=== PATIENT | male | born 1955 | race Caucasian/White ===

== ENCOUNTER → 2022-08-15 | Outpatient (CLI) | payer BC, SELFPAY ==
[2022-08-15 19:27] LABS: Vitamin B12 648 pg/mL (211-911); Vitamin D,25 Hydroxy 79.6 ng/mL
[2022-08-15 19:32] LABS: CRP 8.81 mg/L (0.0-3.0); Ferritin 45 ng/mL (26-388); Free T3 2.3 pg/mL (2.18-3.98); Iron 46 ug/dL (65-175); Magnesium 2.2 mg/dL (1.6-2.6); Phosphorus 2.8 mg/dL (2.5-4.9); T4 Free Direct 1.65 ng/dL (0.76-1.46); Thyroid Stim Hormone (TSH) 3.42 uIU/mL (0.358-3.74)
== END | disposition home or self-care (01) ==
PROVIDERS: Visit Provider Nurse Practitioner Family
DX: K50.90 Crohn's disease, unspecified, without complications (principal); K92.1 Melena; R53.83 Other fatigue
CPT/HCPCS: 82306; 82607; 82728; 83540; 83735; 84100; 84439; 84443; 84481; 86140

== ENCOUNTER → 2023-04-04 | Outpatient (CLI) | payer BC, SELFPAY ==
[2023-04-04 10:16] LABS: Erythrocyte Sedimentation Rate 10 mm/hr (0-20)
[2023-04-04 10:17] LABS: Absolute Lymphocyte Count 1.01 X10^3/uL (0.83-4.51); Absolute Neutrophil Count 4.8 X10^3/uL (2.0-7.7); Basophil# 0.04 X10^3/uL; Basophil% 0.6 % (0-1); Eosinophil# 0.14 X10^3/uL; Eosinophils% 2.1 % (0-5); Hematocrit 43.7 % (40-54); Hemoglobin 14.6 g/dL (13.0-16.5); Lymphocyte # 1.01 X10^3/ul (0.83-4.51); Lymphocyte % 15.4 % (19-41); Mean Corp Hgb Conc 33.4 g/dL (32-36); Mean Corpuscular Hgb 30.7 pg (27.0-32.0); Mean Platelet Vol. 10.7 fl (6.2-12.0); Monocyte# 0.61 X10^3/uL; Monocyte% 9.3 % (0-10); NRBC Flagged by Analyzer 0 % (0-5); Neutrophil # 4.75 X10^3/uL (2.7-7.7); Neutrophil % 72.3 % (47-70); Platelet Count 201 K/mm3 (150-450); RBC Distribution Width CV 13.3 % (11.6-14.6); RBC Distribution Width SD 44.8 fl (35.1-43.9); Red Blood Count 4.75 M/mm3 (4.6-6.2); White Blood Count 6.6 K/mm3 (4.4-11.0)
[2023-04-04 10:38] LABS: ALB/GLOB Ratio 0.7 RATIO (0.9-2.4); AST(SGOT) 15 U/L (15-37); Alanine Aminotransfer ALT/SGPT 18 U/L (16-61); Albumin, Serum 3.3 g/dL (3.2-5.0); Alkaline Phosphatase 62 U/L (45-117); Amylase 90 U/L (25-115); Anion Gap 6 (5-15); BUN 16 mg/dL (7-18); BUN/Creat Ratio 14.2 RATIO (10-20); Calcium,Total 9.2 mg/dL (8.5-10.1); Chloride 107 mmol/L (98-107); Creatinine, Serum 1.13 mg/dL (0.70-1.30); EST Glomerular Filtration Rate 69 mL/min (>60); Est Glom Filt Rate - Afr Amer 83 mL/min (>60); Globulin 4.6 g/dL (2.2-4.2); Glucose 90 mg/dL (74-106); LDH 97 U/L (87-241); Lipase 39 U/L (13-75); Potassium 3.8 mmol/L (3.5-5.1); Protein, Total 7.9 g/dL (6.4-8.2); Sodium Level 139 mmol/L (136-145)
[2023-04-06 12:09] LABS: Anti-Centromere B Ab <0.2 AI (0.0-0.9); Anti-Chromatin <0.2 AI (0.0-0.9); Anti-Jo <0.2 AI (0.0-0.9); Anti-Scleroderma-70 AB <0.2 AI (0.0-0.9); Anti-dsDNA Ab 1 IU/mL (0-9); RNP Ab <0.2 AI (0.0-0.9); SJOGREN'S Anti-SS-A test 0.3 AI (0.0-0.9); SJOGREN'S Anti-SS-B test < 0.2 AI (0.0-0.9); Smith Ab <0.2 AI (0.0-0.9); Vitamin D 1,25-Dihydroxy 55.6 pg/mL (24.8-81.5)
[2023-04-07 18:07] LABS: Albumin 3.4 g/dL (2.9-4.4); Alpha-1-Globulins 0.3 g/dL (0.0-0.4); Alpha-2-Globulins 0.6 g/dL (0.4-1.0); Cytoplasmic Ab (C-ANCA) <1:20 titer (Neg:<1:20); Endomysial Antibody IgA Negative (Negative); Gamma Globulin 1.2 g/dL (0.4-1.8); HEPATITIS B SURFACE AG Negative (Negative); Hep C Antibodies Non Reactive (Non Reactive); Hepatitis A IgM Antibody Negative (Negative); Hepatitis B Core AB IgM Negative (Negative); Immunoglobulin A 759 mg/dL (61-437); Immunoglobulin E 22 IU/mL (6-495); Immunoglobulin G 1304 mg/dL (603-1613); Immunoglobulin M 121 mg/dL (20-172); PROEL- TOTAL PROTEIN 6.8 g/dL (6.0-8.5); Perinuclear Ab (P-ANCA) <1:20 titer (Neg:<1:20); QNTFERON TB Mitogen Value > 10.00 IU/mL (.); QNTFERON TB Nil Value 0.11 IU/mL (.); QNTFERON TB1+ Ag Value 0.11 IU/mL (.); QNTIFERON TB Positive Criteria Negative (Negative); t-Transglutaminase IgA <2 U/mL (0-3)
== END | disposition home or self-care (01) ==
PROVIDERS: Referring Provider Internal Medicine Gastroenterology; Visit Provider Internal Medicine Gastroenterology
DX: K50.00 Crohn's disease of small intestine without complications (principal)
CPT/HCPCS: 36415; 80053; 80074; 82150; 82652; 82784; 82785; 83516; 83615; 83690; 84165; 85025; 85652; 86140; 86225; 86235; 86255; 86256; 86334; 86480

== ENCOUNTER → 2023-04-08 | Outpatient (CLI) | payer BC, SELFPAY ==
[2023-04-10 20:07] LABS: Pancreatic Elastase, Fecal 152 (>200)
[2023-04-12 21:07] LABS: Calprotectin, Stool 1950 ug/g (0-120); Fats, Neutral Normal (.); Fats, Total Increased (.)
== END | disposition home or self-care (01) ==
LOC: LABSPEC 10:15
PROVIDERS: Referring Provider Internal Medicine Gastroenterology; Visit Provider Internal Medicine Gastroenterology
DX: K50.00 Crohn's disease of small intestine without complications (principal)
CPT/HCPCS: 82653; 82705; 83630; 83993; 87177; 87209; 87329; 87506

== ENCOUNTER → 2023-05-01 | Outpatient (CLI) | payer BC, SELFPAY ==
--- NOTE | 2023-05-01 11:36 | MRI_ITS ---
STUDY: MR ENTEROGRAPHY WITH CONTRAST REASON FOR EXAM: Male, 67 years old. K50.00 - Crohn''s disease of small intestine MIDDLE LOWER ABDOMEN PAIN RADIATION DOSAGE (If Supplied By Facility): CTDIvol = ( ) mGy, DLP = ( ) mGycm TECHNIQUE: Transaxial images were obtained from the dome of the diaphragm to the symphysis pubis with IV contrast according to MR enterography protocol. TECHNICAL QUALITY: Image Quality: Satisfactory Small Bowel Distension: Adequate. Individualized dose optimization techniques were used for this CT. COMPARISON: None. FINDINGS: Bowel: Bowel wall thickening: Absent. Skip lesions: None. Vascularity: Normal. Enhancement: Normal. Fistula: None. Abscess: None. Other Findings: The lung bases are unremarkable. The visualized portions of the heart are within normal limits Normal liver. Normal gallbladder and extrahepatic biliary system. Normal spleen. Normal pancreas. Normal bilateral adrenal glands. Normal right kidney. Normal left kidney. Normal visualized stomach. There is moderate colonic fecal residue involving the right, transverse and proximal descending colon. There is moderate wall thickening involving the sigmoid colon in the left lower quadrant as seen on image 14-19 with mild amount of adjacent fat stranding/induration (image 10 series 13). No focal fluid collection. Mildly enlarged pericolonic lymph nodes are seen on image 9 of series 13 measuring up to 8 mm. The appendix is not seen. Normal axial dimension of the abdominal aorta. Normal interior vena cava. Normal retroperitoneum. Normal urinary bladder. Normal abdominal wall. Degenerative changes of the lumbar spine. No bone marrow edema. MRI/Enterography Abd/Pel IMPRESSION: 1. No small bowel wall thickening, mucosal enhancement or enteric fistula. 2. Moderate length wall thickening of the sigmoid colon with underlying diverticulosis and adjacent fat stranding/induration/mild adenopathy. Findings can be associated with acute or chronic diverticulitis, muscular hyperplasia, inflammatory bowel disease or neoplasm. Recommend correlating with endoscopy and clinical history. Electronically Signed: Eliel Hairston (Brooks), at 7:55 EDT ,
--- NOTE | 2023-05-01 11:45 | RAD_ITS ---
STUDY: X-RAY - ORBITS REASON FOR EXAM: Male, 67 years old. HX METAL TO EYE,,, PRE MRI TECHNIQUE: 2 view(s) of the orbits were obtained. COMPARISON: None. FINDINGS: Normal bilateral orbits without a metallic orbital foreign body. Normal visualized facial bones. Normal paranasal sinuses. The soft tissue structures are unremarkable. RAD/Orbits for Foreign Body IMPRESSION: No demonstrated metallic orbital foreign body. The patient is cleared for an MRI examination. Electronically Signed: Randell Thrasher MD at 12:17 EDT ,
[2023-05-01 12:27] VITALS: BP 137/68; PULSE 63; RESP 18; TEMP 36.3; O2SAT 99; BMI 24.0
[2023-05-01] MEDS: Glucagon 1 MG/ML Syringe IV (13:37)
[2023-05-01 13:50] VITALS: BP 126/63; PULSE 64; RESP 16; O2SAT 97
== END | disposition home or self-care (01) ==
LOC: MRI 11:19
PROVIDERS: PCP Nurse Practitioner Family; Referring Provider Internal Medicine Gastroenterology; Visit Provider Internal Medicine Gastroenterology
DX: Z01.818 Encounter for other preprocedural examination (principal); K50.90 Crohn's disease, unspecified, without complications
CPT/HCPCS: 70030; 74183; 96374; A9575; A4216; J1610

== ENCOUNTER 2023-07-05 11:32 | Day surgery (SDC) | payer BC, SELFPAY ==
--- NOTE | 2023-06-28 14:19 | EKG12_ITS ---
Test Reason : PREOP Blood Pressure : / mmHG Vent. Rate : 062 BPM Atrial Rate : 062 BPM P-R Int : 144 ms QRS Dur : 086 ms QT Int : 414 ms P-R-T Axes : 078 005 068 degrees QTc Int : 420 ms Normal sinus rhythm Normal ECG Confirmed by MIGUELANGEL DAMON, DEANA ([id number]), avid editor GRAHAM LOZOYA ([id number]) on 06/29/2023 1:08:44 PM Referred By: Mingo Santillan Confirmed By:DEANA MEANS MD
[2023-07-05] VITALS (9 sets, daily range): BP systolic 129–141; BP diastolic 61–69; PULSE 65–98; RESP 16–18; TEMP 36.3–37.2; O2SAT 92–100; BMI 23.7
--- NOTE | 2023-07-05 12:15 | HP.PCM_ITS ---
History and Physical Date of Admission: 07/05/23 Intake Vital Signs 05/01/2312:27 06/12/2315:09 Height 5 ft 9 in 5 ft 9 in Weight: 160 lb BMI 23.6 BP 118/66 Blood Pressure Location Rt brachial Position Sitting Respiration 17 Pulse 66 Pulse Source Monitor Pulse Oximetry (%) 97 Oxygen Delivery Method room air Intake Visit Reasons: DISCUSS HERNIA SURGERY Chief Complaint: discuss hernia surgery Is patient in pain?: No Allergies No Known Allergies Allergy (Verified 06/12/23 15:10) Medications adalimumab 40 mg/0.4 mL subcutaneous pen kit (Humira(CF) Pen) See Rx Instruc tions subcut .COMPLEX 01/09/23 [History Confirmed 06/12/23] budesonide 3 mg capsule,delayed,extended release 9 mg (3 x 3 mg) PO DAILY #90 ea 05/22/23 [Rx Confirmed 06/12/23] calcium carb,cit 300 mg-magnesium cit,ox 150 mg-vit D3 400 unit tablet tab PO 06/12/23 [History Confirmed 06/12/23] multivitamin 1 tab PO DAILY 06/12/23 [History Confirmed 06/12/23] PFSH Medical History (Updated 06/13/23 @ 08:[address] Mingo Santillan MD) Anal fistula Crohn's disease Frequent headaches Surgical History H/O hernia repair History of discectomy Social History (Updated 06/12/23 @ 15:09 by Ewa Parikh) Smoking Status: Never smoker alcohol intake: never substance use type: does not use HPI HPI HPI: Patient is a 67-year-old male with a recurrent right inguinal hernia. Patient had this repaired in November without mesh due to concern for his Crohn's disease. It recurred shortly after. Patient denies nausea or vomiting but he says that the hernia is painful. ROS General General: Yes fatigue; No weight change, appetite, colon cancer, breast cancer or weakness HEENT HEENT: No difficulty swallowing, eye injury, eye surgery, swollen glands or hoarseness Endo Endocrine: No thyroid disease, diabetes mellitus, thyroid cancer, Hair loss, heat intolerance or cold intolerance Skin Skin: No rash or changing moles Musc Musculoskeletal: No back problems, arthritis, rheumatoid arthritis, gout or maegan nt pain Cardio Cardiovascular: No murmur, pacemaker, heart disease, atrial fibrillation, high blood pressure, heart attack, heart stent, palpitations, shortness of breat with exertion or chest pain Psych Psychiatric: No depression, anxiety or hearing voices Resp Respiratory: No shortness of breath, Yes sleep apnea, No cough, No COPD, No asthma, No emphysema and No wheezing Gastro Gastrointestinal: Yes abdominal pain, No nausea or vomiting, Yes diarrhea, Yes constipation, Yes blood in stool, Yes acid reflux, Yes hemorrhoids, No ulcers, No gallbladder problem and No black,tarry stools Beto Hematologic: No blood thinners, No blood disorders, No bleeding, No anemia and N o blood clots Neuro Neurologic: No system reviewed and no additional complaints, except as documented, No as per HPI, No abnormal gait, No abnormal hearing, No abnormal movements, No abnormal speech, No behavioral changes, No burning sensations, No confusion, No convulsions, No disequilibrium, No dizziness, No localized weakness, No frequent falls, No headache(s), No lack of coordination, No loss of vision, No memory loss, No numbness, No other visual disturbances, No radicular pain, No restless legs, No sensory deficit, No syncope, No tingling, No tremor(s), No weakness and No other Exam Const General: cooperative Orientation: alert and oriented x3 HENMT Head: normal to inspection Neck Neck: normal visual inspection and full ROM Chest Chest palpation & inspection: normal inspection of the chest Resp Effort & Inspection: normal respiratory effort Auscultation: clear to auscultation bilaterally Cardio Rate: regular rate Rhythm: regular rhythm GI Inspection: non-distended Palpation: soft, hernia direct inguinal on the right and nontender Skin General: no rashes or lesions noted Neuro General: patient alert and patient oriented x3 Extrem General: full ROM Psych Appearance: grossly normal Mental Status: mental status grossly normal Assessment and Plan Assessment and Plan (1) Recurrent right inguinal hernia: Status: Acute Plan: Patient had repair of the right inguinal hernia by Bassini approach back in November of this year. He had a recurrence. I discussed robotic assisted laparoscopic right inguinal hernia repair with mesh. I discussed the procedure in detail as well as the risks including but not limited to bleeding, infection, injury to other organs such as the bowel, bladder, ureter. I also discussed the importance of mesh placement. Patient consents to having mesh placed. I will have him stop his Humira 2 weeks before surgery. Mingo Santillan MD Pager: [facility] [address] [place] [address], [address] [place] [address] Office: I have examined the patient and the H&P has been reviewed. There are no clinical changes since date of exam.
[2023-07-05] MEDS: Lactated Ringers 1,000 ML 15 ML IV ×2 (12:17→15:39)
[2023-07-05] MEDS: Cefazolin 2 GM in 0.9% Normal Saline (100mL Bag) 100 ML IV (13:15)
[2023-07-05] MEDS: Bupivacaine Mpf 0.5% 30 ML VIAL (14:35)
--- NOTE | 2023-07-05 14:53 | OP.PCM_ITS ---
Report of Operation Date of Procedure: 07/05/23 Pre-Operative Diagnosis: Recurrent right inguinal hernia Post-Operative Diagnosis: 1. Recurrent right inguinal hernia 2. Left inguinal hernia x2 Surgery/Procedure Performed:: 1. Robotic assisted laparoscopic right recurrent inguinal hernia repair with mesh 2. Robotic assisted laparoscopic left inguinal hernia repair with mesh Type of Anesthesia: General/Regional Specimen's removed: None Estimated Blood Loss (mL): 10 Description of Procedure: Patient was brought back to the operating room and general anesthesia was induced. The abdomen was prepped and draped in usual sterile fashion. A midline incision was made superior to the umbilicus and the fascia was elevated and a Veress needle was placed into the abdomen. A drop test was performed and was normal. The abdomen was insufflated to 15 mmHg and the needle was removed. A port was placed into the abdomen. The abdomen was inspected and there were no injuries from entry. Under direct visualization a right abdominal 8 mm port was placed as well as a left abdominal 8 mm port. Patient was placed in steep Trendelenburg position. The robot was docked. The patient had a recurrent right inguinal hernia which was known but he had a left direct and indirect inguinal hernia that was unknown. I did discuss this with the patient but I did not document on the consent so I called the patient's and discussed repairing the contralateral hernia and the patient's gave agreement on his behalf and so both sides were addressed. In the right groin region an incision was made in the peritoneum. Using electrocautery scissors dissection was carried down to the hernia sac. The hernia sac was unable to be fully reduced due to scar tissue and prior hernia repair. During dissection the sac was abandoned and circumferentially the peritoneum was incised and the distal hernia sac was allowed to stay in the scrotum. There was also a small injury to a blood vessel in the inguinal cord requiring a clip. There was good hemostasis. After this the ProGrip mesh was unfolded and laid across the inguinal region completely covering the defect. Th e peritoneum was then reapproximated using 3 OV lock suture. The opening where the hernia sac was was also closed with a running 3 OV lock suture. The peritoneum completely cover the mesh by the end of the procedure. Next attention was paid to the left side. An incision was made in the peritoneum and dissection was carried inferiorly until the hernia sacs were encountered. They were all reduced. Dissection was carried inferiorly. Next ProGrip mesh was placed in the left inguinal region and unfolded and overlapped with the mesh from the right. The peritoneum was then reapproximated using a running 3 OV lock suture completely covering the mesh. Next both sides were inspected and there appeared to be good hemostasis with good coverage of the mesh. The robot was undocked and the abdomen was allowed to desufflate. The ports were removed. The scrotum was checked and contain both testicles. The skin incisions were injected with local anesthetic and then closed with interrupted 4-0 Monocryl suture, Steri-Strips and bandages were applied. Patient was awoken and taken to PACU in stable condition and tolerated the procedure well. Grafts/Implants Used: ProGrip mesh bilaterally Admit VTE Documentation VTE Mechan Device Prophylaxis: SCD's
--- NOTE | 2023-07-05 14:59 | EX.PCM.DISCH ---
Discharge Instructions Procedure Hernia Diet Discharge Diet: Light diet - advance as tolerated Activity Discharge Activity: May Not Drive (for 2-3 days or while taking narcotic pain meds.) and May Shower (with the bandage in place 1-2 days after surgery.) Lifting Restrictions: 20 pounds for 4 weeks. Additional Activity Instructions:: Climbing stairs is fine, walking is encouraged. Sitting in bed may be uncomfortable. Sitting up using your lateral muscles (sitting up sideways) is usually more comfortable. Do not drive, work heavy equipment of sign legal documents for 24 hours. If your hernia repair was an ingunial repair, you may have scrotal swelling, an ice pack and/or athletic support can provide more comfort. Pain medications may cause nausea, you should typically eat light foods as you take your pain medications. Pain medications may also cause constipation. If you have difficulty with this, discuss with your doctor. Dressing / Incision Call your doctor if your incision/area has: Continuous Slow Oozing, Sudden Increased Bleeding, Increased Pain/ Swelling, Increased Redness and Foul Smelling Discharge Call your doctor if you observe: Fever of 101 or Higher Suture Line Care: Avoid Pulling/Pushing and Avoid Pinching/Bending Remove Dressing in: 2 days (Remove clear bandages in 2 days, remove Steri-Strips in 7 to 10 days.) Follow Up Care Please Follow Up With: Mingo Santillan MD When: Please call to schedule 2 week follow up appointment. [phone] Test Results: Test results from this visit will be discussed in further detail at your follow-up appointment, if applicable. Discharge Plan Admission Attending Provider: Mingo Santillan Primary Care Provider: Krystle Santana DIRECTOR OF ESTATE Consulting Providers: Paul Laguna Instructions Additional Instructions / Restrictions: Ibuprofen and Tylenol for pain, oxycodone for breakthrough. Resume Humira next week. Discharge Orders/Prescriptions Prescriptions: New oxycodone 5 mg tablet 5 - 10 mg PO Q6H PRN (Reason: pain) 5 Days Qty: 15 0RF No Action Humira(CF) Pen 40 mg/0.4 mL pen injector kit See Rx Instructions subcut .COMPLEX Rx Instructions: inject one - 40 mg/0.4 mL pen every 2 weeks subcut calcium carb,cit-mag cit,ox-D3 300 mg-150 mg- 400 unit tablet 2 tab PO DAILY multivitamin Tablet 1 tab PO DAILY budesonide 3 mg capsule,delayed,extend.release 9 mg PO DAILY Qty: 90 2RF Other Ambulatory Orders: 12 Lead EKG (Routine) Timeframe: [id number] Location: None Selected Ordered By: Dr. Robi Gross Referrals / Follow Up: Krystle Santana DIRECTOR OF ESTATE, DIRECTOR OF ESTATE-C [Primary Care Provider] - Disposition Disposition (needs filled in before D/C Order can be placed): Home, Self Care
[2023-07-05] MEDS: oxyCODONE 5 MG Tablet PO (16:25)
[2023-07-05] MEDS: Acetaminophen 325 MG Tablet 650 MG PO (16:25)
[2023-07-11 00:07] LABS: Calprotectin, Stool 265 ug/g (0-120)
[2023-07-11 21:07] LABS: Pancreatic Elastase, Fecal 147 (>200)
== END 2023-07-05 17:49 | disposition home or self-care (01) ==
LOC: SDC 11:34 → AC 11:37
PROVIDERS: Internal Medicine Gastroenterology; PCP Nurse Practitioner Family; Referring Provider Surgery; Visit Provider Surgery
PROC: (CPT 49651; principal; 2023-07-05 13:00)
DX: K40.91 Unilateral inguinal hernia, without obstruction or gangrene, recurrent (principal); K40.90 Unilateral inguinal hernia, without obstruction or gangrene, not specified as recurrent; Z87.19 Personal history of other diseases of the digestive system
CPT/HCPCS: 49651; S2900; 49650; 00830; 82653; 83630; 83993; 93005; J7120; J2405

== ENCOUNTER 2023-10-26 10:10 | Day surgery (SDC) | payer BC, SELFPAY ==
--- NOTE | 2023-10-25 10:15 | COLBX_PTH ---
PATHOLOGY RESULTS PATIENT: MAXIMILIANO WALLER LOC: EN U#:[id number] AGE/SX: 68/M ROOM: RE10/26/[address]: Dr. Paul Laguna DO : 1955 BED: DIS: 10/26/2023 SPEC #: [id number] RECD: 10/26/23 13:10 STATUS: KAYLEE HERNAN #: [id number] DANIEL: 10/25/23 10:[address]: Paul Laguna DEPT: SURGICAL PATHOLOGY RECD BY: Roxanne Chadwick ENTERED: 10/26/23 13:10 SP TYPE: COLON BX OTHR DR: Krystle Santana, TINTER PHOTOGRAPH-C Tissues: Ileum, NOS COLON BIOPSY Sigmoid colon biopsy Procedures: Surgery Specimen Level IV HEADER OPERATION: Colonoscopy with biopsies PRE-OP DIAGNOSIS: Crohn's disease of small intestine TISSUE SUBMITTED: A - Terminal ileum biopsy, B - Random colon biopsies, C - Sigmoid and rectal biopsies MICROSCOPIC DIAGNOSIS A. Terminal ileum, biopsy: Fragments of small intestinal mucosa, no pathologic diagnosis. B. Colon, random biopsy: Fragments of colonic mucosa with rare granuloma formation. See comment. C. Sigmoid colon, biopsy: Fragments of colonic mucosa with chronic inflammation and rare granuloma formation. See comment. SJ:rg 10/29/2023 COMMENT B. Significant glandular distortion or active inflammation is not seen. C. Significant glandular distortion is not seen. Mucosa show predominantly chronic inflammatory cell infiltrate and minimal acute inflammatory cell infiltrate. Cryptitis or crypt abscesses are not seen. No evidence of dysplasia. Correlation with clinical, endoscopic findings and appropriate follow up are necessary. Case has been reviewed in consultation with Dr. Gardner who concurs with the above diagnosis. IDC:AM MICROSCOPIC DESCRIPTION Slides are reviewed. GROSS DESCRIPTION A - Received in fixative is one container labeled with the patient's name and designated terminal ileum. The specimen consists of multiple irregular fragments of light muñiz soft tissue that in aggregate measure 1.2 x 0.3 x 0.1 cm. The specimen is totally submitted in one cassette. B - Received in fixative is one container labeled with the patient's name and designated random colon biopsy. The specimen consists of multiple irregular fragments of light muñiz soft tissue that in aggregate measure 1.0 x 0.3 x 0.1 cm. The specimen is totally submitted in one cassette. C - Received in fixative is one container labeled with the patient's name and designated sigmoid and rectum biopsy. The specimen consists of multiple irregular fragments of light muñiz soft tissue that in aggregate measure 1.5 x 0.3 x 0.1 cm. The specimen is totally submitted in one cassette. / WHITLEY:sussy 10/26/2023 TC:3 CPT: 50031 x3
[2023-10-26 10:40] VITALS: BP 129/67; PULSE 66; RESP 16; TEMP 36.6; O2SAT 99; BMI 24.0
[2023-10-26] MEDS: Lactated Ringers 1,000 ML 15 ML IV (10:44)
--- NOTE | 2023-10-26 11:35 | HP.PCM_ITS ---
History and Physical Date of Admission: 10/26/23 Mr. Paul England has a history of Crohn?s disease diagnosed 2019 with symptom onset 6 months prior to diagnosis. Humira started and experienced fatigue improvement but side effects of headache, concentration and dizziness occurred and resolved with reduction of dose. *BGI established 04.04.23 currently utilizing Humira with somewhat controlled symptoms. ? Biochemical CBC, ESR, CMP, LFT, LDH, amylase, lipase, D1,25, IgGME, EJ comp, ANCA, MORGAN, celiac, hepatitis, TB without pertinent abnormality ? Crohn?s (apANCA 1:640, ACCA), CRP H6.5, IgA H759 ? Stool c.difficile (formed), EP, O/P, giardia WNL? lactoferrin +,elastase L152, calprotectin H1950 Contact 04.26.23 with results; recommend start of budesonide 9mg QD ? MREnterography 05.01.23 moderate colonic fecal burden; LLQ inflammation concerning for diverticulitis; no small bowel disease. Contact, 05.01.23 with MRI results; recommend cipro/flagyl treatment. Contact 05.10.23 questioning need for budesonide and Humira use. OK to reduce budesonide by 3mg each week and call back with symptom update after one month of no budesonide. Contact 05.29.23 contact reporting that since stopping budesonide he has had a return of abdominal pain. Recommend restarting budesonide 9mg and repeat stool testing. ? Stool Lactoferrin +, Elastase L147, calprotectin H265 OV 09.05.23 reports resolution of loose stools and abdominal pain; improvement of flatulence and bloating. Recent hernia repair that has resolved some of the abdominal pain. Currently having some constipation but is managing with prune juice and PRN stool softener. Continues with budesonide 9mg and Humira. PAUL ENGLAND, is a 68 M who presents to the office today for ROS Const Constitutional: No fatigue ENT ENT: No difficulty swallowing Gastro GI: Positive for abdominal pain, change in bowel habits, constipation, diarrhea and Blood in stool; No belching, bloating, change in stool character, coffee ground emesis, cramping, heartburn, difficulty swallowing, feeling full early, excessive flatus, incontinent of stools, Vomiting blood/hematemesis, loose stools, Black,tarry stools, nausea/dyspepsia, pain with swallowing, vomiting or other Musc Musculoskeletal: Positive for joint pain and back pain Skin Skin: No yellowing of the eye or itchy eyes Psych Psychiatric: No anxiety and No depression Endo Endocrine: No fatigue Aller/Imm Allergy/Immunologic: No itchy eyes Beto/Lymp Hematologic/Lymphatic: No easy bleeding or easy bruising Exam Const General: cooperative and comfortable Nutritional Appearance: average body habitus and well nourished [facility] Head: normal to inspection Ears: hearing grossly normal bilaterally Nose: external nose normal Face and sinus: normal facial exam Mouth: oral mucosae normal Throat: posterior oropharynx normal Eyes General: appearance normal, both eyes and all related structures Neck Neck: normal visual inspection Chest Chest palpation & inspection: normal inspection of the chest and normal palpation of entire chest wall Resp Effort & Inspection: normal respiratory effort Auscultation: Bilateral: Clear to Auscultation Cardio Palpation: normal PMI Rate: regular rate Rhythm: regular rhythm GI Inspection: normal to inspection Auscultation: normal bowel sounds Percussion: normal to percussion Palpation: no hepatosplenomegaly Skin General: no rashes or lesions noted Neuro General: patient alert Extrem General: normal to inspection Psych Affect: normal affect Quality Reporting Tobacco Screening ([facility] 138) Smoking Status: Never smoker Assessment and Plan Assessment and Plan (1) Crohn's disease of small intestine without complications: Status: Acute Plan: 67-year-old gentleman with fistulizing Crohn's disease complicated by perianal fistula, uveitis and aphthous ulcers in the mouth. He is on Humira every other week. We will check Humira levels and antibody levels, stool studies, QuantiFERON gold and hepatitis B along with liver function test, ESR, CRP and other autoimmune labs. We ordered an MRI enterography. His stool studies had shown a ANCA 1 out of 646 ,fecal calprotectin of 1950. Fecal elastase was 152. His biochemical workup showed elevated IgA at 759, CRP 7 and ESR at 50. We ordered a MR enterography and it displayed diffuse colitis along with diverticulitis. We placed him on Flagyl and Cipro for 14 days and gave him budesonide 9 mg a day. He is not having any abdominal pain, bloating, or diarrhea but he is experiencing some constipation for the first time. He has been on Humira once a week from his previous physician and he still did not have any improvement. His Humira levels and antibody levels to Humira were not checked previously. Since he is doing very well on budesonide he does not want to take the Humira anymore. I told him that we can keep him on monotherapy with budesonide but we eventually have to transition him to a maintenance medicine. We will titrate him down to 6 mg a day for the next 4 weeks to see how he does and if the const ipation resolves and then we will continue that dose. However if the constipation continues and we may have to decrease it down to 3 mg a day. He is okay with this plan. When he comes back next time we will institute a probiotic as there has been some evidence of improvement and maintain of remission with probiotics and also colitis patient. He will also need a follow-up colonoscopy as his blood work and presentation are presenting more like ulcerative colitis and Crohn's disease. He may need a capsule endoscopy in the future. Orders: Orders CBC W/Diff, Automated Today K50.00 - Crohn's disease of small intestine without complications LDH Today K50.00 - Crohn's disease of small intestine without complications Calprotectin, Stool Today K50.00 - Crohn's disease of small intestine without complications Comprehensive Metabolic Profil Today K50.00 - Crohn's disease of small intestine without complications CRP Today K50.00 - Crohn's disease of small intestine without complications Stool Lactoferrin/WBC Today K50.00 - Crohn's disease of small intestine without complications Erythrocyte Sed Rate Today K50.00 - Crohn's disease of small intestine without complications Miscellaneous Lab Procedure Today K50.00 - Crohn's disease of small intestine without complications I have examined the patient and the H&P has been reviewed. There are no clinical changes since date of exam.
[2023-10-26 12:10] VITALS: BP 104/57; BP 129/67; PULSE 57; RESP 12; O2SAT 97
[2023-10-26 12:11] VITALS: BP 129/67; BP 98/58; PULSE 59; RESP 14; TEMP 36.4; O2SAT 96
--- NOTE | 2023-10-26 12:13 | OP.CCLET_ITS ---
10/26/2023 Krystle Santana, Yuliet Re : Colonoscopy procedure for Paul England Dear Np. Santana This procedure was performed on Thursday, October 26, 2023. My impressions and recommendations are as follows: Impressions : - Preparation of the colon was inadequate. 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 - Diverticulosis in the recto-sigmoid colon, in the sigmoid colon and in the descending colon. - Colitis. Inflammation was found from the anus to the splenic flexure, in the hepatic flexure and at the cecum. This was moderate in severity, worsened compared to previous examinations. Biopsied. - Congested mucosa in the terminal ileum. Biopsied. Recommendations : - Discharge patient to home. - Resume previous diet. - Continue present medications. - Await pathology results. - Repeat colonoscopy is recommended for surveillance. The colonoscopy date will be determined after pathology results from today's exam become available for review. My findings are described in the full procedure note, which is enclosed. If I can be of further assistance, please feel free to contact me at . Sincerely, Paul Laguna, 10/26/2023 12:12:39 PM This report has been signed electronically.
--- NOTE | 2023-10-26 12:13 | OP.COLON_ITS ---
Patient Name: Paul England Procedure Date: 10/26/2023 11:34 AM Date of : 1955 Age: 68 Procedure: Colonoscopy Indications: Crohn's disease Providers: Paul Laguna DO Referring MD: Paul Laguna DO Medicines: Monitored Anesthesia Care Patient Profile: This is a 68 year old male. Refer to note in patient chart for documentation of history and physical. Last Colonoscopy: none. The patient's first colonoscopy is today. Complications: No immediate complications. Procedure: Pre-Anesthesia Assessment: - Prior to the procedure, a History and Physical was performed, and patient medications and allergies were reviewed. The patient is competent. The risks and benefits of the procedure and the sedation options and risks were discussed with the patient. All questions were answered and informed consent was obtained. Patient identification and proposed procedure were verified by the physician in the pre-procedure area. Mental Status Examination: alert and oriented. Airway Examination: normal oropharyngeal airway and neck mobility. Respiratory Examination: clear to auscultation. CV Examination: normal. Prophylactic Antibiotics: The patient does not require prophylactic antibiotics. Prior Anticoagulants: The patient has taken no anticoagulant or antiplatelet agents. ASA Grade Assessment: II - A patient with mild systemic disease. After reviewing the risks and benefits, the patient was deemed in satisfactory condition to undergo the procedure. The anesthesia plan was to use monitored anesthesia care (MAC). Immediately prior to administration of medications, the patient was re-assessed for adequacy to receive sedatives. The heart rate, respiratory rate, oxygen saturations, blood pressure, adequacy of pulmonary ventilation, and response to care were monitored throughout the procedure. The physical status of the patient was re-assessed after the procedure. After I obtained informed consent, the scope was passed under direct vision. Throughout the procedure, the patient's blood pressure, pulse, and oxygen saturations were monitored continuously. The colonoscope was introduced through the anus and advanced to the terminal ileum. The colonoscopy was performed without difficulty. The patient tolerated the procedure well. The quality of the bowel preparation was inadequate. The terminal ileum, ileocecal valve, appendiceal orifice, and rectum were photographed. Scope In: 11:43:24 AM Scope Withdrawal Time 0 hours 10 minutes 14 seconds Scope Out: 12:00:49 PM Total Procedure Duration Time 0 hours 17 minutes 25 seconds Findings: The perianal exam findings include anal fissure and perianal fistula. Multiple small and large-mouthed diverticula were found in the recto-sigmoid colon, sigmoid colon and descending colon. Inflammation characterized by congestion (edema), erosions, erythema, friability and granularity was found in a continuous and circumferential pattern from the anus to the splenic flexure and as patches surrounded by normal mucosa in the hepatic flexure and at the cecum. The splenic flexure, the transverse colon, the hepatic flexure and the ascending colon were spared. The inflammation was moderate in severity, and when compared to previous examinations, the findings are worsened. Biopsies were taken with a cold forceps for histology. Verification of patient identification for the specimen was done. Estimated blood loss was minimal. A patchy area of the terminal ileum was congested. Biopsies were taken with a cold forceps for histology. Verification of patient identification for the specimen was done. Estimated blood loss was minimal. Extensive amounts of stool was found in the entire colon. Impression: - Preparation of the colon was inadequate. 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 - Diverticulosis in the recto-sigmoid colon, in the sigmoid colon and in the descending colon. - Colitis. Inflammation was found from the anus to the splenic flexure, in the hepatic flexure and at the cecum. This was moderate in severity, worsened compared to previous examinations. Biopsied. - Congested mucosa in the terminal ileum. Biopsied. Recommendation: - Discharge patient to home. - Resume previous diet. - Continue present medications. - Await pathology results. - Repeat colonoscopy is recommended for surveillance. The colonoscopy date will be determined after pathology results from today's exam become available for review. Procedure Code(s): --- Professional --- 32034, Colonoscopy, flexible; with biopsy, single or multiple CPT copyright 2021 [employer]. All rights reserved. The codes documented in this report are preliminary and upon group chief operator review may be revised to meet current compliance requirements. Paul Laguna DO 10/26/2023 12:12:39 PM This report has been signed electronically. Number of Addenda: 0 Note Initiated On: 10/26/2023 11:34 AM
[2023-10-26 12:15] VITALS: BP 104/54; BP 129/67; PULSE 65; RESP 14; O2SAT 99
[2023-10-26 12:21] VITALS: BP 110/65; BP 129/67; PULSE 58; RESP 12; TEMP 36.3; O2SAT 96
[2023-10-26 12:36] VITALS: BP 129/67
== END 2023-10-26 12:44 | disposition home or self-care (01) ==
LOC: EN 10:12 → AC 10:14
PROVIDERS: PCP Nurse Practitioner Family; Referring Provider Nurse Practitioner Family; Visit Provider Internal Medicine Gastroenterology
PROC: 0DJD8ZZ Inspection of Lower Intestinal Tract, Via Natural or Artificial Opening Endoscopic (ICD-10-PCS; CPT 45378; principal; 2023-10-26 10:10)
DX: K50.00 Crohn's disease of small intestine without complications (principal); K60.2 Anal fissure, unspecified; Z79.899 Other long term (current) drug therapy; K60.3 Anal fistula; K57.50 Diverticulosis of both small and large intestine without perforation or abscess without bleeding; K63.89 Other specified diseases of intestine; Z87.19 Personal history of other diseases of the digestive system
CPT/HCPCS: 45380; 87493; 87506; 88305; J7120; J2405

== ENCOUNTER → 2023-11-21 | Outpatient (CLI) | payer BC, SELFPAY ==
[2023-11-21 17:52] LABS: Absolute Neutrophil Count 6.4 X10^3/uL (2.0-7.7); Basophil# 0.03 X10^3/uL; Basophil% 0.4 % (0-1); Eosinophil# 0.04 X10^3/uL; Eosinophils% 0.5 % (0-5); Hematocrit 42.3 % (40-54); Hemoglobin 13.6 g/dL (13.0-16.5); Mean Corp Hgb Conc 32.2 g/dL (32-36); Mean Corpuscular Hgb 29.7 pg (27.0-32.0); Mean Corpuscular Volume 92.4 fL (80-94); Mean Platelet Vol. 9.8 fl (6.2-12.0); Monocyte# 0.87 X10^3/uL; Monocyte% 10.4 % (0-10); NRBC Flagged by Analyzer 0 % (0-5); Neutrophil % 76.5 % (47-70); Platelet Count 259 K/mm3 (150-450); RBC Distribution Width CV 13.2 % (11.6-14.6); RBC Distribution Width SD 44.7 fl (35.1-43.9); Red Blood Count 4.58 M/mm3 (4.6-6.2); White Blood Count 8.4 K/mm3 (4.4-11.0)
[2023-11-21 17:59] LABS: Erythrocyte Sedimentation Rate 17 mm/hr (0-20)
[2023-11-21 18:34] LABS: ALB/GLOB Ratio 0.8 RATIO (0.9-2.4); AST(SGOT) 19 U/L (15-37); Alanine Aminotransfer ALT/SGPT 22 U/L (16-61); Albumin, Serum 3.3 g/dL (3.2-5.0); Alkaline Phosphatase 61 U/L (45-117); Anion Gap 4 (5-15); BUN 22 mg/dL (7-18); BUN/Creat Ratio 19.5 RATIO (10-20); Calcium,Total 8.8 mg/dL (8.5-10.1); Chloride 104 mmol/L (98-107); Creatinine, Serum 1.13 mg/dL (0.70-1.30); EST Glomerular Filtration Rate 69 mL/min (>60); Est Glom Filt Rate - Afr Amer 83 mL/min (>60); Globulin 4.2 g/dL (2.2-4.2); Glucose 102 mg/dL (74-106); LDH 122 U/L (87-241); Potassium 4.3 mmol/L (3.5-5.1); Protein, Total 7.5 g/dL (6.4-8.2); Sodium Level 134 mmol/L (136-145)
== END | disposition home or self-care (01) ==
LOC: LAB 16:35
PROVIDERS: PCP Nurse Practitioner Family; Referring Provider Internal Medicine Gastroenterology; Visit Provider Internal Medicine Gastroenterology
DX: K50.00 Crohn's disease of small intestine without complications (principal)
CPT/HCPCS: 36415; 80053; 83615; 85025; 85652; 86140

== ENCOUNTER → 2023-11-23 | Outpatient (CLI) | payer BC, SELFPAY ==
[2023-11-28 00:06] LABS: Calprotectin, Stool 519 ug/g (0-120)
== END | disposition home or self-care (01) ==
LOC: LABSPEC 14:12
PROVIDERS: PCP Nurse Practitioner Family; Referring Provider Internal Medicine Gastroenterology; Visit Provider Internal Medicine Gastroenterology
DX: K50.00 Crohn's disease of small intestine without complications (principal)
CPT/HCPCS: 83630; 83993

== ENCOUNTER 2023-12-23 09:22 | Emergency (ER) | payer BC, SELFPAY ==
[2023-12-23 09:22] VITALS: BP 140/74; PULSE 83; RESP 16; TEMP 36.5; O2SAT 97; BMI 24.4
--- NOTE | 2023-12-23 09:37 | EKG12_ITS ---
Test Reason : GENERAL Blood Pressure : / mmHG Vent. Rate : 079 BPM Atrial Rate : 079 BPM P-R Int : 154 ms QRS Dur : 086 ms QT Int : 376 ms P-R-T Axes : -04 023 033 degrees QTc Int : 431 ms Normal sinus rhythm Normal ECG Confirmed by Venkata Castro ([id number]), editor department [facility] ([id number]) on 12/25/2023 10:22:07 AM Referred By: Confirmed By:Venkata Castro
--- NOTE | 2023-12-23 09:37 | CT_ITS ---
STUDY: CT ABDOMEN AND PELVIS WITH CONTRAST REASON FOR EXAM: Male, 68 years old. Left lower quadrant pain. History of Crohn''s disease. RADIATION DOSAGE (If Supplied By Facility): CTDIvol = ( 11.87 ) mGy, DLP = ( 545.09 ) mGycm TECHNIQUE: Transaxial images were obtained through the abdomen and pelvis without oral contrast. 100 ml of Isovue-370 contrast was administered. Sagittal and coronal images were reconstructed. Individualized dose optimization techniques were used for this CT. COMPARISON: MRI dated 05/01/2023 FINDINGS: LOWER THORAX: The visualized lung bases are clear. The visualized portions of the heart and pericardium are within normal limits. GALLBLADDER / BILE DUCTS: There are no calcified gallstones present. There is no intrahepatic biliary duct dilatation. The common bile duct is normal in caliber. There are no calcified ductal stones. LIVER: There are simple cysts noted in the liver. SPLEEN: The spleen is normal in size. PANCREAS: The pancreas is within normal limits. ADRENAL GLANDS: The adrenal glands are within normal limits. KIDNEYS / BLADDER: There are subcentimeter nonobstructing right renal collecting system stones, measuring up to 3 mm. There are no additional urinary calculi. There is no hydronephrosis. There are no focal renal lesions. The urinary bladder is partially distended and appears grossly unremarkable. STOMACH / BOWEL: Normal visualized stomach. There is no bowel obstruction. There is a large amount of stool in the colon. There is bowel wall thickening in the distal transverse colon, descending colon and sigmoid colon which is consistent with colitis. The appendix is visualized and appears normal. PERITONEUM/RETROPERITONEUM: There is no abdominal or pelvic free air, free fluid or fluid collection. There is no abnormal soft tissue mass identified. There is no abdominal or pelvic lymphadenopathy. VESSELS: The aorta is normal in caliber. The IVC is unremarkable. BONES: There are no destructive osseous lesions. SOFT TISSUES: The visualized soft tissues are within normal limits. CT/Abdomen/Pelvis W IV Cont ONLY IMPRESSION: Colitis in the distal transverse colon, descending colon and sigmoid colon. No free air, free fluid or fluid collection. No bowel obstruction. Constipation. Normal appendix. Subcentimeter nonobstructing right renal collecting system stones. No additional urinary calculi. No hydronephrosis. Electronically Signed: Nathan Ferguson MD at 11:05 EDT ,
--- NOTE | 2023-12-23 09:38 | EDS_ITS ---
HPI History of Present Illness Chief Complaint: Nausea/Vomiting/Diarrhea Informant: patient Onset/Context/Timing Onset: Weeks Context: Gradual Onset Narrative Narrative: Patient presents with 2-week history of nausea, vomiting, and diarrhea. He had a colonoscopy about 8 weeks ago which he think put him into a mild Crohn's flare. Over the past 2 weeks symptoms have been significantly worse. He thinks he may have had subjective fever. He was started on mesalamine on the , but states he stopped it about 5 days ago when he was not getting any improvement, and if anything felt symptoms were worse. He has had some intermittent blood in his stool but states that is not atypical for him with his bowel disease and hemorrhoids. [facility] Medical History Anal fistula Cancer Crohn's disease Frequent headaches History of Crohn's disease History of diverticulitis History of stress test Loss of hearing Non-smoker Wears hearing aid Home Medications calcium carb,cit 300 mg-magnesium cit,ox 150 mg-vit D3 400 unit tablet 2 tab PO DAILY 06/12/23 [History Last Taken Unknown] multivitamin 1 tab PO DAILY 06/12/23 [History Last Taken Unknown] budesonide 3 mg capsule,delayed,extended release 6 mg (2 x 3 mg) PO DAILY #60 ea 12/07/23 [Rx Last Taken Unknown] mesalamine 1.2 gram tablet,delayed release 2.4 g (2 x 1.2 gram) PO DAILY 8 weeks #112 tabs 12/07/23 [Rx Last Taken Unknown] ciprofloxacin HCl 500 mg tablet 500 mg PO BID #20 TABLETS 12/23/23 [Rx Last Taken Unknown] metronidazole 500 mg tablet 500 mg PO Q12H 20 days #40 tabs 12/23/23 [Rx Last Taken Unknown] prednisone 20 mg tablet 60 mg (3 x 20 mg) PO DAILY 2 weeks #42 TABLETS 12/23/23 [Rx Last Taken Unknown] Allergy/AdvReac Type Severity Reaction Status Date / Time No Known Allergies Allergy Verified 12/23/23 09:24 Surgical History H/O hernia repair History of discectomy History of wisdom tooth extraction Social History Smoking Status: Never smoker alcohol intake: never substance use type: does not use ROS ROS ED Constitutional Constitutional ED: Reports fever(s) and subjective; Denies chills Eyes Eyes: Denies change in vision or discharge from eye(s) ENT ENT ED: Denies discharge from eye(s), rhinorrhea or sore throat Cardiovascular Cardiovascular: Denies chest pain or palpitations Respiratory/Chest Respiratory/Chest: Denies cough or dyspnea Gastrointestinal Gastrointestinal: Reports abdominal pain, diarrhea, nausea and vomiting Genitourinary Genitourinary ED: Denies dysuria Musculoskeletal Musculoskeletal: Denies back pain or extremity pain Integumentary Denies Abrasions or rash Neurologic Neurologic: Denies headache(s) or weakness Psychiatric Psychiatric: Denies anxiety or depression Allergic/Immunologic Allergic/Immunologic ED: Denies lip swelling or urticaria EXAM Physical Exam Const Vital Signs: 12/23/23 09:22 12/23/23 10:16 12/23/23 10:24 Temperature 97.7 F L 99.3 F H Temperature Source Temporal Oral Pulse Rate 83 79 76 Respiratory Rate 16 18 16 Blood Pressure 140/74 H 128/61 H 122/59 H Blood Pressure Mean 96 83 80 Pulse Ox 97 95 91 Oxygen Delivery Method Room Air Room Air Room Air Positive well nourished and well developed General Appearance ED: well developed HEENT Reports moist mucous membranes Eyes EOMs intact bilaterally Chest Wall inspection of chest normal and palpation of chest normal Resp normal respiratory effort and clear to auscultation bilaterally Cardio regular rate and regular rhythm GI GI Narrative: Abdomen soft with focal tenderness in the left lower quadrant. No guarding or rebound. Hypoactive bowel sounds. Extremity normal to inspection Neuro oriented x3 and no sensory deficits noted Motor Exam: strength 5/5 throughout Psych mental status grossly normal Skin no rashes or lesions noted MDM MDM MDM Narrative Medical decision making narrative: IV line established. Patient given morphine and Zofran for pain and nausea. IV fluids initiated. Labwork obtained to evaluate for leukocytosis, anemia, and electrolyte derangement. CT scan of the abdomen pelvis with IV contrast will be obtained to evaluate for wall thickness, diverticulitis. History & Record Review Discussion w/independent historian: Patient and Significant other Additional record(s) reviewed:: Prior labs Lab Data Attestation: I reviewed the patient's lab results. Labs: Laboratory Results - last 24 hr 12/23/23 09:50 WBC 9.2 RBC 3.96 L Hgb 11.6 L Hct 35.7 L MCV 90.2 MCH 29.3 MCHC 32.5 RDW Std Deviation 43.5 RDW Coeff of Howie 13.2 Plt Count 286 MPV 8.8 Immature Gran % (Auto) 0.400 Neut % (Auto) 70.1 H Lymph % (Auto) 11.6 L Larue % (Auto) 16.6 H Eos % (Auto) 0.3 Baso % (Auto) 1.0 Absolute Neuts (auto) 6.4 Absolute Lymphs (auto) 1.06 Nucleated RBC % 0 Platelet Estimate ADEQUATE RBC Morphology NORM C+C ESR 18 Sodium 134 L Potassium 4.1 Chloride 104 Carbon Dioxide 27.0 Anion Gap 3 L BUN 15 Creatinine 1.21 Estim Creat Clear Calc 57.31 Est GFR (MDRD) Af Amer 77 Est GFR (MDRD) Non-Af 64 BUN/Creatinine Ratio 12.4 Glucose 148 H Lactic Acid 1.3 Calcium 8.7 C-React Prot Ext Range 124.00 H Radiography Diagnostic Testing: Clinical Impression(s) from Imaging Studies Abdomen/Pelvis CT 12/23/23 09:37 IMPRESSION: Colitis in the distal transverse colon, descending colon and sigmoid colon. No free air, free fluid or fluid collection. No bowel obstruction. Constipation. Normal appendix. Subcentimeter nonobstructing right renal collecting system stones. No additional urinary calculi. No hydronephrosis. Electronically Signed: Nathan Ferguson MD at 11:05 EDT , EKG Initial EKG: Attestation: I personally reviewed and interpreted this EKG as follows: Interpretation: Sinus Rhythm (Sinus at 79 with no acute ischemia.) Treatment and Re-Evaluation :: Patient given morphine and Zofran along with IV fluids. CBC was normal white count 9.2 with 70% neutrophils. Hemoglobin is 11.6. Chemistry studies reveal normal potassium at 4.1. BUN is 15 and creatinine is 1.21. Glucose is 148. Sed rate is normal at 18 but his CRP is elevated at 124. EKG is sinus rhythm with no evidence of acute ischemia. Normal QTc. CT scan of the abdomen pelvis with IV contrast is obtained. There is evidence of colitis in the distal transverse colon, descending colon, and sigmoid colon. There is no evidence of free air, free fluid, or fluid collection. Test results discussed with Dr. Laguna, the patient's GI physician. He would like the patient being given 80 mg of Solu-Medrol IV now. He wants the patient on 60 mg of prednisone daily for at least the next 2 weeks. He also would like the patient to receive a course of Cipro and Flagyl. Prescriptions will be sent to the pharmacy for him. He was advised that he will need a prednisone taper if his symptoms are improving after this 2 weeks. He was advised not to stop taking the prednisone without having a taper. Patient is to follow-up with Dr. Laguna as soon as possible. Return instructions given. Discharge Plan Triage Chief Complaint: Nausea/Vomiting/Diarrhea ED Provider: Kalie Palmer Dx/Rx/DC Orders Clinical Impression: Colitis, Exacerbation of Crohn's disease Instructions: ED Crohn's Disease Prescriptions: New prednisone 20 mg tablet 60 mg PO DAILY 14 Days Qty: 42 0RF ciprofloxacin HCl 500 mg tablet 500 mg PO BID Qty: 20 0RF metronidazole 500 mg tablet 500 mg PO Q12H 20 Days Qty: 40 0RF No Action calcium carb,cit-mag cit,ox-D3 300 mg-150 mg- 400 unit tablet 2 tab PO DAILY multivitamin Tablet 1 tab PO DAILY mesalamine 1.2 gram tablet,delayed release (DR/EC) 2.4 g PO DAILY 56 Days Qty: 112 0RF budesonide 3 mg capsule,delayed,extend.release 6 mg PO DAILY Qty: 60 2RF Primary Care Provider: Krystle Santana NP Referrals: Paul Laguna DO [Med Staff - Active Staff] - As soon as possible Krystle Santana NP, [employer] [Primary Care Provider] -
[2023-12-23 09:57] LABS: Absolute Lymphocyte Count 1.06 X10^3/uL (0.83-4.51); Absolute Neutrophil Count 6.4 X10^3/uL (2.0-7.7); Basophil# 0.09 X10^3/uL; Eosinophil# 0.03 X10^3/uL; Eosinophils% 0.3 % (0-5); Hematocrit 35.7 % (40-54); Hemoglobin 11.6 g/dL (13.0-16.5); Lymphocyte # 1.06 X10^3/ul (0.83-4.51); Lymphocyte % 11.6 % (19-41); Mean Corp Hgb Conc 32.5 g/dL (32-36); Mean Corpuscular Hgb 29.3 pg (27.0-32.0); Mean Corpuscular Volume 90.2 fL (80-94); Mean Platelet Vol. 8.8 fl (6.2-12.0); Monocyte# 1.52 X10^3/uL; Monocyte% 16.6 % (0-10); NRBC Flagged by Analyzer 0 % (0-5); Neutrophil # 6.41 X10^3/uL (2.7-7.7); Neutrophil % 70.1 % (47-70); POSITIVE DIFFERENTIAL YES; POSITIVE MORPHOLOGY YES; Platelet Count 286 K/mm3 (150-450); RBC Distribution Width CV 13.2 % (11.6-14.6); RBC Distribution Width SD 43.5 fl (35.1-43.9); Red Blood Count 3.96 M/mm3 (4.6-6.2); White Blood Count 9.2 K/mm3 (4.4-11.0)
[2023-12-23 10:00] LABS: Differential Indicated SCAN CRITERIA MET
[2023-12-23 10:11] LABS: Anion Gap 3 (5-15); BUN 15 mg/dL (7-18); BUN/Creat Ratio 12.4 RATIO (10-20); Calcium,Total 8.7 mg/dL (8.5-10.1); Chloride 104 mmol/L (98-107); Creatinine, Serum 1.21 mg/dL (0.70-1.30); EST Glomerular Filtration Rate 64 mL/min (>60); Est Glom Filt Rate - Afr Amer 77 mL/min (>60); Estimated Creatinine Clearance 57.31 ml/min; Glucose 148 mg/dL (74-106); Potassium 4.1 mmol/L (3.5-5.1); Sodium Level 134 mmol/L (136-145)
[2023-12-23] MEDS: 0.9% Normal Saline (1000mL) 1,000 ML 1000 ML IV (10:13)
[2023-12-23] MEDS: 0.9% Normal Saline (1000mL) 1,000 ML 150 ML IV (10:13)
[2023-12-23] MEDS: Ondansetron 4 MG/2 ML Vial IV (10:13)
[2023-12-23] MEDS: Morphine 4 MG/ML Syringe IV (10:13)
[2023-12-23 10:14] LABS: Erythrocyte Sedimentation Rate 18 mm/hr (0-20)
[2023-12-23 10:16] VITALS: BP 128/61; PULSE 79; RESP 18; O2SAT 95
[2023-12-23 10:21] LABS: Lactic Acid 1.3 mmol/L (0.4-1.9)
[2023-12-23 10:24] VITALS: BP 122/59; PULSE 76; RESP 16; TEMP 37.4; O2SAT 91
[2023-12-23 10:34] LABS: Platelet Estimate ADEQUATE (ADEQ); Red Cell Morphology NORM C+C NORMAL (NORM C&C)
[2023-12-23] MEDS: MethylPREDNISolone 125 MG/2 ML Vial 80 MG IV (11:32)
[2023-12-23 11:50] VITALS: BP 115/60; PULSE 74; RESP 16; TEMP 37.4; O2SAT 95
[2023-12-23] MEDS: metroNIDAZOLE 500 MG Tablet PO (11:50)
[2023-12-23] MEDS: Ciprofloxacin 500 MG Tablet PO (11:50)
== END 2023-12-23 11:54 | disposition home or self-care (01) ==
PROVIDERS: Emergency Provider Emergency Medicine; PCP Nurse Practitioner Family; Visit Provider Emergency Medicine
DX: K50.90 Crohn's disease, unspecified, without complications (principal); K64.9 Unspecified hemorrhoids; Z79.899 Other long term (current) drug therapy
CPT/HCPCS: 74177; 80048; 83605; 85025; 85652; 86140; 93005; 96361; 96374; 96375; 99284; J7030; Q9967; A4216; J2405

== ENCOUNTER 2023-12-28 13:02 | Outpatient (CLI) | payer BC, SELFPAY ==
[2023-12-28 13:22] VITALS: BP 124/56; PULSE 71; RESP 16; TEMP 36.2; O2SAT 98; BMI 24.3
[2023-12-28] MEDS: 0.9% NaCl Peripheral Flush Adult/Peds IV (13:30)
[2023-12-28] MEDS: Ustekinumab 390 MG in 0.9% Normal Saline (250mL Bag) 172 ML 250 MG IV (13:48)
[2023-12-28] MEDS: 0.9% NaCl IVPB Med Flush (250 mL) 15 ML IV (13:48)
[2023-12-28 15:13] VITALS: BP 127/65; PULSE 74
== END 2023-12-28 13:03 | disposition home or self-care (01) ==
LOC: MEDOUTP 13:02
PROVIDERS: PCP Nurse Practitioner Family; Referring Provider Internal Medicine Gastroenterology; Visit Provider Internal Medicine Gastroenterology
DX: K50.90 Crohn's disease, unspecified, without complications (principal)
CPT/HCPCS: 96365; J7050; A4216; J3358

== ENCOUNTER → 2025-03-11 | Outpatient (CLI) | payer OTHER, SELFPAY ==
[2025-03-11 17:15] LABS: Absolute Neutrophil Count 6.9 X10^3/uL (2.0-7.7); Basophil# 0.04 X10^3/uL; Basophil% 0.4 % (0-1); Eosinophil# 0.12 X10^3/uL; Eosinophils% 1.3 % (0-5); Hematocrit 38.4 % (40-54); Hemoglobin 11.6 g/dL (13.0-16.5); Lymphocyte % 13.2 % (19-41); Mean Corp Hgb Conc 30.2 g/dL (32-36); Mean Corpuscular Hgb 23.3 pg (27.0-32.0); Mean Corpuscular Volume 77.3 fL (80-94); Mean Platelet Vol. 10.2 fl (6.2-12.0); Monocyte% 8.8 % (0-10); NRBC Flagged by Analyzer 0 % (0-5); Neutrophil % 75.9 % (47-70); Platelet Count 297 K/mm3 (150-450); RBC Distribution Width CV 19.1 % (11.6-14.6); RBC Distribution Width SD 53.1 fl (35.1-43.9); Red Blood Count 4.97 M/mm3 (4.6-6.2); White Blood Count 9.1 K/mm3 (4.4-11.0)
[2025-03-11 17:43] LABS: Erythrocyte Sedimentation Rate 18 mm/hr (0-20)
[2025-03-11 18:01] LABS: ALB/GLOB Ratio 1.5 RATIO (0.9-2.4); AST(SGOT) 20 U/L (<=37); Alanine Aminotransfer ALT/SGPT 15 U/L (<=46); Albumin, Serum 4.2 g/dL (3.4-4.8); Alkaline Phosphatase 81 U/L (40-129); Anion Gap 10 (5-15); BUN 21 mg/dL (4-19); BUN/Creat Ratio 21.2 RATIO (10-20); CRP 3.53 mg/L (0.0-3.0); Calcium,Total 9.3 mg/dL (7.6-11.0); Carbon Dioxide 25.9 mmol/L (21.0-32.0); Chloride 104 mmol/L (98-108); EST Glomerular Filtration Rate 82 (>60); Globulin 2.8 g/dL (2.2-4.2); Glucose 127 mg/dL (70-99); Potassium 4.3 mmol/L (3.3-5.1); Protein, Total 6.9 g/dL (5.9-8.4); Sodium Level 140 mmol/L (133-145); Total Bilirubin 0.53 mg/dL (0.00-1.30)
[2025-03-17 18:08] LABS: QNTFERON TB Mitogen Value > 10.00 IU/mL (.); QNTFERON TB Nil Value 0.03 IU/mL (.); QNTFERON TB1+ Ag Value 0.03 IU/mL (.); QNTFERON TB2+ Ag Value 0.03 IU/mL (.); QNTIFERON TB Positive Criteria Negative (Negative)
== END | disposition home or self-care (01) ==
LOC: LAB 16:18
PROVIDERS: PCP Internal Medicine; Referring Provider Internal Medicine Gastroenterology; Visit Provider Internal Medicine Gastroenterology
DX: K50.00 Crohn's disease of small intestine without complications (principal)
CPT/HCPCS: 36415; 80053; 85025; 85652; 86140; 86480

== ENCOUNTER → 2025-07-17 | Outpatient (CLI) | payer MEDICARE, SELFPAY ==
[2025-07-17 10:16] LABS: Hematocrit 46.2 % (40-54); Hemoglobin 16.0 g/dL (13.0-16.5); Immature Granulocytes Count 0.060 X10^3/uL (0.0-0.0); Mean Corp Hgb Conc 34.6 g/dL (32-36); Mean Corpuscular Volume 89.2 fL (80-94); Mean Platelet Vol. 10.0 fl (6.2-12.0); NRBC Flagged by Analyzer 0 % (0-5); Platelet Count 220 K/mm3 (150-450); RBC Distribution Width CV 14.1 % (11.6-14.6); RBC Distribution Width SD 45.8 fl (35.1-43.9); Red Blood Count 5.18 M/mm3 (4.6-6.2); White Blood Count 11.5 K/mm3 (4.4-11.0)
[2025-07-17 10:57] LABS: Ferritin 55 ng/mL (37-417); Iron 108 ug/dL (65-175); Iron Binding Capacity,Total 257 ug/dL (250-450); Iron Binding Capacity,Unsat 149 ug/dL (228-428)
[2025-07-18 06:08] LABS: Transferrin 207 mg/dL (177-329)
== END | disposition home or self-care (01) ==
LOC: LAB 09:30
PROVIDERS: Referring Provider Internal Medicine Gastroenterology; Visit Provider Internal Medicine Gastroenterology
DX: K50.00 Crohn's disease of small intestine without complications (principal); E61.1 Iron deficiency
CPT/HCPCS: 36415; 82728; 83540; 83550; 84466; 85025